=== PATIENT | male | born 1985 | race Two or more races ===

== ENCOUNTER 2018-11-29 12:40 | Emergency (ER) ==
[~2018-11-29] VITALS: Ht 177.8 cm; Wt 108.9 kg
[2018-11-29 12:40] VITALS: BP 146/96
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
[2018-11-29] MEDS ORDERED: HYDROCODONE/APAP 5/325MG 1 EACH TABLET ONE (12:54)
[2018-11-29] MEDS ORDERED: ONDANSETRON 4 MG TAB.RAPDIS ONE (12:54)
[2018-11-29] MEDS ORDERED: HYDROCODONE/APAP 5/325MG 1 EACH TABLET PO ONE (13:00)
[2018-11-29] MEDS ORDERED: ONDANSETRON 4 MG TAB.RAPDIS PO ONE (13:00)
== END 2018-11-29 14:19 | disposition home or self-care (01) ==
LOC: ER 12:42
DX: S10.81XA Abrasion of other specified part of neck, initial encounter (principal); M25.512 Pain in left shoulder; F12.90 Cannabis use, unspecified, uncomplicated; V49.49XA Driver injured in collision with other motor vehicles in traffic accident, initial encounter; Y93.89 Activity, other specified; Y92.413 State road as the place of occurrence of the external cause; Y99.8 Other external cause status
CPT/HCPCS: 71045; 73030; 99283; Q0162